=== PATIENT | male | born 1935 | race Caucasian/White ===

== ENCOUNTER → 2018-04-05 | Outpatient (CLI) | payer MEDICARE ==
[~2018-04-05] MED LIST: ASPI-515 PO; CHOL500015 PO; DILT60TA30 PO; HYDR12.53 PO; IRBE150T25 PO; MULT-658 PO; POTA20PA25 PO; POTA20PI5 PO; POTA20TA91 PO; [UNRECOGNIZED DRUG - OTHER]; [UNRECOGNIZED DRUG - OTHER] PO; [UNRECOGNIZED DRUG - OTHER] PO; [UNRECOGNIZED DRUG - OTHER] PO; tumeric PO
== END | disposition home or self-care (01) ==
LOC: CVU 08:35
PROVIDERS: ATTEND Internal Medicine Cardiovascular Disease
DX: I51.7 Cardiomegaly (principal); I34.0 Nonrheumatic mitral (valve) insufficiency
CPT/HCPCS: 93306